=== PATIENT | female | born 1960 | race Caucasian/White ===

== ENCOUNTER 2016-11-11 10:38 | Emergency (ER) | payer SELFPAY ==
[~2016-11-11 10:38] MED LIST: Sodium Chloride 0.9% 1,000 ML BAG ONE
[2016-11-11 12:26] LABS: #Basophils 0.1 thou/uL (0.0-0.2); #Eosinphils 0.1 thou/uL (0.0-0.7); #Lymphocytes 0.9 thou/uL (1.20-3.40); #Monocytes 0.6 thou/uL (0.11-0.59); #Neutrophils 13.7 thou/uL (1.40-6.50); %Basophils 0.6 % (0.0-1.0); %Eosinophils 0.6 % (0.0-10.0); %Lymphocytes 6.1 % (21.0-51.0); %Monocytes 3.6 % (0.0-10.0); %Neutrophils 89.1 % (42.0-75.0); Hemoglobin 10.8 g/dL (12.0-16.0); Mean Corpuscular HGB CONC 31.7 g/dL (32.0-36.0); Mean Platelet Volume 5.7 fL (7.4-10.4); Platelet Count 416 thou/uL (130-400); RBC Distribution Width 13.4 % (11.5-14.5); Red Blood Cell (RBC) Count 3.36 mill/uL (4.20-5.40); White Blood Cell (WBC) Count 15.4 thou/uL (4.8-10.8)
[2016-11-11 12:28] LABS: ALT (SGPT) 82 U/L (0-55); AST (SGOT) 189 U/L (5-34); Albumin 3.9 g/dL (3.5-5.0); Alcohol Less than 10 mg/dL (Less than 10); Alkaline Phosphatase 111 U/L (40-150); Anion Gap 20 mmol/L (10-20); BUN (Urea Nitrogen) 15 mg/dL (9.8-20.1); Bilirubin, Total Less than 0.3 mg/dL (0.2-1.2); Calc. Creatinine Clearance 0 mL/min (70-130); Calcium 8.9 mg/dL (7.8-10.44); Carbon Dioxide 19 mmol/L (22-29); Chloride 105 mmol/L (98-107); Estimated GFR-MDRD 75; Globulin 3.3 g/dL (2.4-3.5); Glucose 108 mg/dL (70-105); Potassium 4.3 mmol/L (3.5-5.1); Protein, Total 7.2 g/dL (6.0-8.3); Sodium 140 mmol/L (136-145)
[2016-11-11 12:29] LABS: CKMB 6.4 ng/mL (0-6.6); Troponin I Less than 0.010 ng/mL (< 0.028)
[2016-11-11 12:33] LABS: Bilirubin Negative (Negative); Blood, Urine Small (Negative); Clarity Turbid (Clear); Glucose, Urine (Dipstick) Negative (Negative); Leukocyte Trace (Negative); Nitrite Positive (Negative); Protein, Urine (Dipstick) 30 mg/dL (Neg-Trace); Urobilinogen 0.2 mg/dL (0.2-1.0)
[2016-11-11 12:42] LABS: Bacteria/HPF 4+ HPF (None Seen); RBC/HPF 21-50 HPF (0-3); Squamous Epithelial 21-50 HPF (0-3); Transitional Epithelial 0-3 HPF (0-3); Yeast-All Forms 2+ HPF (None Seen)
[2016-11-11 12:43] LABS: Amphetamine Not Detected (NotDetected); Barbiturates Screen Not Detected (NotDetected); Benzodiazepine Screen Detected (NotDetected); Cocaine Metabolite Screen Not Detected (NotDetected); Medtox Control Line Valid? VALID (VALID); Methadone Not Detected (NotDetected); Methamphetamine Not Detected (NotDetected); Opiate Screen Detected (NotDetected); Oxycodone Screen Not Detected (NotDetected); Phencyclidine (PCP) Not Detected (NotDetected); THC/Cannabinoid Screen Detected (NotDetected); Tricyclic Screen Not Detected (NotDetected)
[2016-11-11] MEDS ORDERED: Naloxone HCl 0.4 mg/ml Vial ONE (12:56)
[2016-11-11] MEDS ORDERED: Fentanyl 100 MCG/2 ML VIAL ONE (13:35)
[2016-11-11 13:56] LABS: Acetaminophen Less than 3.0 mcg/mL (10.0-30.0); Salicylate Less than 5.0 mg/dL (15.0-30.0)
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
--- NOTE | 2016-11-11 14:39 | PICIS ---
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 (0.0-0.2). (12:27 LHOD) Cardiac Profile w/CKMB & TropI Collection DT: Anette Nov 11, 2016 12:02, CKMB 6.4 ng/mL, Range (0-6.6), Troponin I Less than 0.010 ng/mL, Range (< 0.028), Reference Range &a-1R&a+25V*p+0X*[id number]*c202B*c15G*c2P*p-0X&a-25V&a+1R Name: Cora Ponce : 1960 F56 MedRec: [id number] AcctNum: [id number] Prepared: Anette Nov 11, 2016 15:32 by Interface Page 10 of 13 pMD [facility] , 0.00 - 0.028 ng/mL Negative 0.029 - 0.29 ng/mL , Indeterminate Greater or Equal to 0.3 ng/mL Strongly suggests CO , . (12:30 LHOD) Alcohol Collection DT: Anette Nov 11, 2016 12:02, Alcohol Less than 10 mg/dL, Range (Less than 10), The pharmacological response to blood alcohol levels may vary from, individual to individual. Negative: Less than 10, mg/dL Toxic: 50 - 100 mg/dL , Depression of [employer]: Greater than 100 mg/dL , Fatalities reported: Greater than 400 mg/dL . (12:30 LHOD) Comprehensive Metabolic Panel Collection DT: Anette Nov 11, 2016 12:02, Sodium 140 mmol/L, Range (136-145), Potassium 4.3 mmol/L, Range (3.5-5.1), Chloride 105 mmol/L, Range (98-107), *Carbon Dioxide 19 - L mmol/L, Range (22-29), Anion Gap 20 mmol/L, Range (10-20), BUN (Urea Nitrogen) 15 mg/dL, Range (9.8-20.1), Creatinine 0.79 mg/dL, Range (0.6-1.1), Estimated GFR-MDRD 75 , Reference Range for Estimated GFR: Greater than 90, mL/min/1.73 m2 NOTE: The MDRD equation has not been validated for use, with the elderly (over 70 years of age), women, patients with, serious comorbid condition or persons with extremes of body size, muscle, mass, or nutritional status. , *Glucose 108 - H mg/dL, Range (70-105), Calcium 8.9 mg/dL, Range (7.8-10.44), Bilirubin, Total Less than 0.3 mg/dL, Range (0.2-1.2), Protein, Total 7.2 g/dL, Range (6.0-8.3), NOTE: Plasma values are generally 0.3 to 0.5 g/dL higher than serum values, due to the presence of fibrinogen. , Albumin 3.9 g/dL, Range (3.5-5.0), Globulin 3.3 g/dL, Range (2.4-3.5), Alb/Glob Ratio 1.2 g/dL, Range (1.2-2.2), Alkaline Phosphatase 111 U/L, Range (40-150), *AST (SGOT) 189 - H U/L, Range (5-34), *ALT (SGPT) 82 - H U/L, Range (0-55). (12:30 LHOD) Drug Screen, Urine Collection DT: Anette Nov 11, 2016 12:43, *THC/Cannabinoid Screen Detected - H , Range (NotDetected), Phencyclidine (PCP) Not Detected , Range (NotDetected), Cocaine Metabolite Screen Not Detected , Range (NotDetected), &a-1R&a+25V*p+0X*[id number]*c202B*c15G*c2P*p-0X&a-25V&a+1R Name: Cora Ponce : 1960 F56 MedRec: [id number] AcctNum: [id number] Prepared: Anette Nov 11, 2016 15:32 by Interface Page 11 of 13 pMD [facility] Methamphetamine Not Detected , Range (NotDetected), *Opiate Screen Detected - H , Range (NotDetected), Amphetamine Not Detected , Range (NotDetected), *Benzodiazepine Screen Detected - H , Range (NotDetected), Tricyclic Screen Not Detected , Range (NotDetected), Methadone Not Detected , Range (NotDetected), Barbiturates Screen Not Detected , Range (NotDetected), Oxycodone Screen Not Detected , Range (NotDetected), Propoxyphene Screen Not Detected , Range (NotDetected), Drug Screen Cutoff , Range (), [employer] Profile-V Panel for Qualitative Drugs of Abuse assays are for, presumptive screening testing only. The drug class and detection limits, are as follows: Drug Class Detection Limit Amphetamine , 500 ng/mL* Barbiturates 200 ng/mL , Benzodiazepines 150 ng/mL* Cocaine 150 ng/mL*, Methamphetamine 500 ng/mL* Methadone 200, ng/mL* Opiates 100 ng/mL* Oxycodone , 100 ng/mL PCP 25 ng/mL Propoxyphene , 300 ng/mL Tricyclic Antidepressants 300 ng/mL Cannabinoids (THC) , 50 ng/mL Tests which yield a presumptive positive result must be , tested using a more specific alternate chemical method in order to obtain, a confirmed analytical result. Additional confirmation and identification, may be ordered on a routine basis, if desired. Presumptive positive urines, are held for two weeks. . (12:50 LHOD) Urinalysis with Microscopic Collection DT: Lincoln Nov 11, 2016 12:33, Color Yellow , Range (Yellow), *Clarity Turbid - H , Range (Clear), Specific [place], Urine 1.020 , Range (1.005-1.030), pH, Urine 5.0 , Range (5.0-9.0), *Leukocyte Trace - H , Range (Negative), *Nitrite Positive - H , Range (Negative), *Protein, Urine (Dipstick) 30 - H mg/dL, Range (Neg-Trace), Glucose, Urine (Dipstick) Negative mg/dL, Range (Negative), *Ketone, Urine Trace - H mg/dL, Range (Negative), Urobilinogen 0.2 mg/dL, Range (0.2-1.0), Bilirubin Negative , Range (Negative), *Blood, Urine Small - H , Range (Negative), *RBC/HPF 21-50 - H HPF, Range (0-3), *WBC/HPF Greater Than 50-TNTC HPF, &a-1R&a+25V*p+0X*[id number]*c202B*c15G*c2P*p-0X&a-25V&a+1R Name: Cora Ponce : 1960 F56 MedRec: [id number] AcctNum: [id number] Prepared: [place] Nov 11, 2016 15:32 by Interface Page 12 of 13 pMD [facility] * - H , Range (0-3), *Squamous Epithelial 21-50 - H HPF, Range (0-3), Transitional Epithelial 0-3 HPF, Range (0-3), *Renal Epithelial 4-6 - H HPF, Range (0-3), *Bacteria/HPF 4+ - H HPF, Range (None Seen), *Yeast-All Forms 2+ - H HPF, Range (None Seen). (12:50 LHOD) Salicylate Collection DT: Lincoln Nov 11, 2016 13:56, *Salicylate Less than 5.0 - L mg/dL, Range (15.0-30.0). (13:57 LHOD) Acetaminophen Collection DT: Lincoln Nov 11, 2016 13:56, *Acetaminophen Less than 3.0 - L mcg/mL, Range (10.0-30.0), Therapeutic Range: 10.0 - 30.0 ug/mL Toxic Range: Possible, toxicity: 150 - 200 ug/mL Probable toxicity: Greater than 200, ug/mL *IMPORTANT TESTING INFORMATION* The half-life of NAC is 2, hours. The total NAC clearance is 5.6 hours for adults and 11 hours for, Newborns. Testing acetaminophen levels prior to a reasonable time frame, for clearance can cause falsely decreased acetaminophen levels. . (13:57 LHOD) [place]: AWAT=ESSIE To, Andrew LHOD=MD Danette, Lawanda DOHERTYI=ESSIE Birch, Slinda &a-1R&a+25V*p+0X*[id number]*c202B*c15G*c2P*p-0X&a-25V&a+1R Name: Cora Ponce : 1960 F56 MedRec: [id number] AcctNum: [id number] Prepared: Anette Nov 11, 2016 15:32 by Interface Page 13 of 13 pMD [facility]
--- NOTE | 2016-11-11 14:55 | CT ---
CT OF BRAIN PERFORMED WITHOUT CONTRAST ENHANCEMENT: HISTORY: Head injury. FINDINGS: The ventricular and cisternal system is within normal limits. There are no signs of intracerebral h emorrhage or extraaxial fluid collections. Left frontal scalp hematoma is present. The mastoid air cells and visualized sinuses are clear. IMPRESSION: No acute intracranial abnormalities. POS: [facility]
--- NOTE | 2016-11-11 14:58 | RAD ---
AP PELVIS: HISTORY: Trauma to pelvis. FINDINGS: The pelvic ring appears intact without evidence of fracture. SI joints are symmetric. No diastasis of the symphysis. IMPRESSION: Negative AP pelvis. POS: [facility]
--- NOTE | 2016-11-11 15:03 | CT ---
CT CERVICAL SPINE PERFORMED WITHOUT CONTRAST ENHANCEMENT HISTORY: Trauma with neck pain. COMPARISON: 05/01/2015 FINDINGS: The vertebral bodies are normal in height. Anterior cervical fusion is again noted at th e C5-C6 level. There are degenerative facet changes present. The facets do appear to be in normal alignment. There is some borderline left-sided foraminal narrowing at C5-C6. There is no CT eviden ce for fracture. IMPRESSION No CT evidence of fracture of the cervical spine. POS: [facility]
--- NOTE | 2016-11-11 15:18 | RAD ---
SINGLE VIEW CHEST HISTORY: Chest trauma with pain. COMPARISON: None. FINDINGS: A single view of the chest shows a normal sized cardiomediastinal silhouette. There is no evidence of consolidation, mass, or pleural effusion. Degenerative changes are seen in the spine . There appears to be a fracture of the proximal right humerus. IMPRESSION 1. No evidence of acute cardiopulmonary disease. 2. Proximal right humeral fracture. POS: [facility]
--- NOTE | 2016-11-11 15:21 | RAD ---
RIGHT SHOULDER THREE VIEWS HISTORY: Injury to shoulder. FINDINGS: There is a right humeral neck and greater tuberosity fracture. The humeral head is in n ormal position. IMPRESSION Right humeral neck and greater tuberosity fracture. POS: [facility]
== END 2016-11-11 13:48 | disposition short-term general hospital (02) ==
LOC: MADERS 10:38
DX: S09.90XA Unspecified injury of head, initial encounter (principal); S42.291A Other displaced fracture of upper end of right humerus, initial encounter for closed fracture; S42.251A Displaced fracture of greater tuberosity of right humerus, initial encounter for closed fracture; R74.8 Abnormal levels of other serum enzymes; J44.9 Chronic obstructive pulmonary disease, unspecified; F17.210 Nicotine dependence, cigarettes, uncomplicated; Z90.49 Acquired absence of other specified parts of digestive tract; Z90.89 Acquired absence of other organs; Z90.710 Acquired absence of both cervix and uterus; V49.9XXA Car occupant (driver) (passenger) injured in unspecified traffic accident, initial encounter
CPT/HCPCS: 36415; 70450; 71010; 72125; 72170; 80053; 80306; 80307; 81001; 82553; 84484; 85025; 87077; 87086; 87186; 93005; 94640; 96361; 96374; 96375; J2310; J3010; J7050; J7620

== ENCOUNTER 2017-04-28 17:48 | Emergency (ER) | payer SELFPAY, OTHER ==
[2017-04-28] MEDS ORDERED: Ibuprofen 400 MG TAB ONE (19:13)
--- NOTE | 2017-04-28 20:38 | RAD ---
THREE VIEWS RIGHT SHOULDER 04/28/2017 HISTORY: Right shoulder pain. COMPARISON: 11/11/2016 FINDINGS: Three views of the right shoulder demonstrate a healing proximal right humeral fracture. No acute r ight shoulder fracture is seen. IMPRESSION: Healing right humeral fracture. POS: [facility]
== END 2017-04-28 19:57 | disposition home or self-care (01) ==
LOC: MADERS 17:48
DX: K12.1 Other forms of stomatitis (principal); M16.11 Unilateral primary osteoarthritis, right hip; M19.011 Primary osteoarthritis, right shoulder; F41.9 Anxiety disorder, unspecified; J44.9 Chronic obstructive pulmonary disease, unspecified; D50.9 Iron deficiency anemia, unspecified; F17.210 Nicotine dependence, cigarettes, uncomplicated; Z86.73 Personal history of transient ischemic attack (TIA), and cerebral infarction without residual deficits

== ENCOUNTER 2017-07-14 19:39 | Emergency (ER) | payer OTHER, SELFPAY ==
[2017-07-14 20:38] LABS: Hemoglobin 10.6 g/dL (12.0-16.0); Mean Corpuscular HGB CONC 32.8 g/dL (32.0-36.0); Mean Corpuscular Hemoglobin 32.4 pg (27.0-31.0); Mean Corpuscular Volume 98.7 fl (81.0-99.0); Mean Platelet Volume 6.4 fL (7.4-10.4); Platelet Count 372 thou/uL (130-400); RBC Distribution Width 13.8 % (11.5-14.5); Red Blood Cell (RBC) Count 3.29 mill/uL (4.20-5.40); White Blood Cell (WBC) Count 12.2 thou/uL (4.8-10.8)
[2017-07-14 20:41] LABS: #Basophils 0.1 thou/uL (0.0-0.2); #Eosinphils 0.2 thou/uL (0.0-0.7); #Lymphocytes 1.8 thou/uL (1.20-3.40); #Monocytes 0.6 thou/uL (0.11-0.59); #Neutrophils 9.4 thou/uL (1.40-6.50); %Eosinophils 1.7 % (0.0-10.0); %Lymphocytes 14.5 % (21.0-51.0); %Monocytes 5.7 % (0.0-10.0); %Neutrophils 77.2 % (42.0-75.0); ALT (SGPT) 18 U/L (8-55); AST (SGOT) 21 U/L (5-34); Albumin 3.8 g/dL (3.5-5.0); Alkaline Phosphatase 101 U/L (40-150); Anion Gap 14 mmol/L (10-20); BUN (Urea Nitrogen) 11 mg/dL (9.8-20.1); Bilirubin, Total Less than 0.3 mg/dL (0.2-1.2); Calc. Creatinine Clearance 0 mL/min (70-130); Calcium 8.8 mg/dL (7.8-10.44); Carbon Dioxide 21 mmol/L (22-29); Chloride 107 mmol/L (98-107); Estimated GFR-MDRD 66; Globulin 3.8 g/dL (2.4-3.5); Glucose 103 mg/dL (70-105); Potassium 4.4 mmol/L (3.5-5.1); Protein, Total 7.6 g/dL (6.0-8.3); Sodium 138 mmol/L (136-145)
[2017-07-14 20:42] LABS: Eosinophils 4 % (0-10); Hypochromia SLIGHT = 6-15 cells (100X) (0-5/hpf); Lymphocytes 18 % (21-51); Monocytes 8 % (0-10); PLT Morphology Comment Appears Adequate
[2017-07-14 20:43] LABS: MDiff Complete? YES; Manual Diff?? YES; RBC Morphology ABNORMAL
--- NOTE | 2017-07-14 21:58 | RAD ---
SINGLE VIEW OF THE CHEST LEFT RIB SERIES: Comparison: None. History: Fall with left chest pain. FINDINGS: Single view of the chest and multiple views of the left ribs shows fracture of the posterolateral 8t h, 9th, and 10th ribs. No underlying pneumothorax are seen. The cardiomediastinal silhouette is normal in size. There is no evidence of consolidation, mass, or pleural effusions. Hardware is seen in the cervical spine. IMPRESSION: Left 8th through 10th rib fractures. POS: [facility]
== END 2017-07-14 21:27 | disposition home or self-care (01) ==
LOC: MADERS 19:39
DX: S22.42XA Multiple fractures of ribs, left side, initial encounter for closed fracture (principal); J06.9 Acute upper respiratory infection, unspecified; F43.9 Reaction to severe stress, unspecified; J44.9 Chronic obstructive pulmonary disease, unspecified; D50.9 Iron deficiency anemia, unspecified; F17.210 Nicotine dependence, cigarettes, uncomplicated; Z86.73 Personal history of transient ischemic attack (TIA), and cerebral infarction without residual deficits; Z79.899 Other long term (current) drug therapy; W19.XXXA Unspecified fall, initial encounter
CPT/HCPCS: 36415; 80053; 85025

== ENCOUNTER 2017-12-27 21:43 | Emergency (ER) | payer OTHER, SELFPAY ==
--- NOTE | 2017-12-27 22:38 | RAD ---
SOFT TISSUE NECK RADIOGRAPH SERIES TWO VIEWS 12/27/17 INDICATION: Evaluation for foreign body. FINDINGS: There is no obvious radiopaque foreign body seen overlying the imaged oropharyngeal airway. Epiglotti s is unremarkable. Postsurgical changes at the low cervical spine present. There is partially imaged radiopaque density overlying the oral cavity, not further localized on the lateral view. IMPRESSION: No radiopaque foreign body is seen at the level of the oropharynx or hypopharyngeal airway. Partially imaged hyperdensity projects over the oral cavity on the lateral projection, not further lo calized. POS: [facility]
[2017-12-27] MEDS ORDERED: Lorazepam 2 MG/ML VIAL ONE (23:08)
[2017-12-27] MEDS ORDERED: Ondansetron HCl/PF 4 MG/2 ML Vial ONE (23:09)
[2017-12-27] MEDS ORDERED: MORPHINE 10 MG/ML SYRINGE ONE (23:09)
== END 2017-12-28 00:15 | disposition short-term general hospital (02) ==
LOC: MADERS 21:43
DX: T18.198A Other foreign object in esophagus causing other injury, initial encounter (principal); J44.9 Chronic obstructive pulmonary disease, unspecified; G89.29 Other chronic pain; M54.30 Sciatica, unspecified side; F41.9 Anxiety disorder, unspecified; F17.210 Nicotine dependence, cigarettes, uncomplicated; D50.9 Iron deficiency anemia, unspecified; Z79.899 Other long term (current) drug therapy
CPT/HCPCS: 70360; 96374; 96375; J2060; J2270; J2405

== ENCOUNTER 2019-12-14 20:21 | Emergency (ER) | payer SELFPAY ==
[~2019-12-14 20:21] MED LIST changes: +Sodium Chloride 0.9% 50 ML BAG ONE
[2019-12-14] MEDS ORDERED: Ondansetron PF 4 MG/2 ML Vial ONE ×2 (21:09→21:15)
[2019-12-14 21:24] LABS: #Basophils 0.1 thou/uL (0.0-0.2); #Lymphocytes 1.6 thou/uL (1.20-3.40); #Monocytes 0.5 thou/uL (0.11-0.59); #Neutrophils 4.4 thou/uL (1.40-6.50); %Basophils 1.2 % (0.0-1.0); %Eosinophils 0.3 % (0.0-10.0); %Lymphocytes 23.9 % (21.0-51.0); %Monocytes 7.8 % (0.0-10.0); %Neutrophils 66.9 % (42.0-75.0); Hemoglobin 11.9 g/dL (12.0-16.0); Mean Corpuscular HGB CONC 31.5 g/dL (32.0-36.0); Mean Corpuscular Hemoglobin 31.5 pg (27.0-31.0); Mean Platelet Volume 6.2 fL (7.4-10.4); Platelet Count 642 thou/uL (130-400); RBC Distribution Width 14.5 % (11.5-14.5); Red Blood Cell (RBC) Count 3.77 mill/uL (4.20-5.40); White Blood Cell (WBC) Count 6.6 thou/uL (4.8-10.8)
[2019-12-14] MEDS ORDERED: Morphine 4 MG/ML VIAL ONE (21:51)
[2019-12-14 21:58] LABS: ALT (SGPT) 16 U/L (8-55); AST (SGOT) 20 U/L (5-34); Albumin 3.8 g/dL (3.4-4.8); Alkaline Phosphatase 133 U/L (40-110); Anion Gap 18 mmol/L (10-20); BUN (Urea Nitrogen) 27 mg/dL (9.8-20.1); Bilirubin, Total 0.2 mg/dL (0.2-1.2); Calc. Creatinine Clearance 0 mL/min (70-130); Calcium 8.9 mg/dL (7.8-10.44); Carbon Dioxide 18 mmol/L (23-31); Chloride 104 mmol/L (98-107); Estimated GFR-MDRD 43; Globulin 4.5 g/dL (2.4-3.5); Glucose 117 mg/dL (80-115); Lipase 9 U/L (8-78); Potassium 3.5 mmol/L (3.5-5.1); Protein, Total 8.3 g/dL (6.0-8.3); Sodium 136 mmol/L (136-145)
[2019-12-14] MEDS ORDERED: Metoclopramide HCl 10 MG/2 ML VIAL ONE (22:11)
--- NOTE | 2019-12-14 22:22 | CT ---
CT Abdomen Pelvis WO Con History: Abdominal pain. Vomiting. Comparison: None. Findings: Few tree-in-bud opacities within the right middle lobe as well as anterior segment left low er lobe. Prior cholecystectomy. Mild diverticular disease of the sigmoid colon without active current inflammation. Mild wall thicken ing of the sigmoid colon without definite mass appreciated. Distal one half appendiceal size measures approximate 6-7 mm, increased in size from the 2017 exam. The aortoiliac contour is nonaneurysmal. Multiple calcified splenic granulomas. Pancreas is unremarka ble. Noncontrast evaluation of the liver, pancreas, adrenal glands are unremarkable. No nephroureterolithi asis or hydroureteronephrosis. No secondary evidence of a recently passed stone. Old fracture of L1 vertebral body with minimal retropulsion. Subcortical cysts of the T12 vertebral body. Impression: 1. Appendiceal tip size upper limits of normal. Recommend correlation with right lower quadrant tende rness although there is no periappendiceal inflammation and acute appendicitis is felt unlikely. A follow-up CT of the abdomen and pelvis with contrast in 6 months would be recommended if patient does not have symptomatology of early acute appendicitis given the interval size increase from 2017 to evaluate for underlying appendiceal malignant process. 2. Mild diverticular disease sigmoid colon without active current inflammation. 3. No nephroureterolithiasis or hydroureteronephrosis. No secondary evidence of a recently passed sto ne. 4. Few tree-in-bud opacities within the right middle lobe, left lower lobe and right lower lobe can b e seen with aspiration pneumonia.
[2019-12-14] MEDS ORDERED: Promethazine HCl 25 MG/ML VIAL ONE (23:04)
[2019-12-14] MEDS ORDERED: Dexamethasone 10 MG/ML VIAL ONE (23:06)
[2019-12-15 00:17] LABS: Bilirubin Negative (Negative); Blood, Urine Negative (Negative); Clarity Clear (Clear); Glucose, Urine (Dipstick) Negative (Negative); Leukocyte Negative (Negative); Nitrite Negative (Negative); Protein, Urine (Dipstick) 30 mg/dL (Neg-Trace); Urobilinogen 0.2 mg/dL (Less than 2)
[2019-12-15 00:26] LABS: Bacteria/HPF Rare-Few HPF (None Seen); Mucous/LPF Rare LPF (<2+); RBC/HPF None Seen HPF (0-3); Squamous Epithelial 0-3 HPF (0-3); WBC/HPF 0-3 HPF (0-3)
== END 2019-12-15 00:29 | disposition home or self-care (01) ==
LOC: MADERS 20:21
DX: K52.9 Noninfective gastroenteritis and colitis, unspecified (principal); F31.9 Bipolar disorder, unspecified; F41.9 Anxiety disorder, unspecified; J44.9 Chronic obstructive pulmonary disease, unspecified; F17.210 Nicotine dependence, cigarettes, uncomplicated; D50.9 Iron deficiency anemia, unspecified; Z86.73 Personal history of transient ischemic attack (TIA), and cerebral infarction without residual deficits; Z79.899 Other long term (current) drug therapy
CPT/HCPCS: 74176; 80053; 81003; 81015; 83690; 85025; 96361; 96365; 96375; J1100; J2270; J2405; J2550; J2765; J7050

== ENCOUNTER 2020-06-26 00:42 | Emergency (ER) | payer SELFPAY ==
[2020-06-26] MEDS ORDERED: Colchicine 0.6 MG TAB ONE (01:06)
[2020-06-26] MEDS ORDERED: Ketorolac Tromethamine 30 MG/ML VIAL ONE (01:06)
[2020-06-26] MEDS ORDERED: Ondansetron ODT 4 MG TAB ONE (01:06)
[2020-06-26] MEDS ORDERED: HYDROcodone/Acetaminophen 10/325 mg Tablet ONE (01:48)
== END 2020-06-26 01:52 | disposition home or self-care (01) ==
LOC: MADERS 00:42
DX: M10.9 Gout, unspecified (principal); J44.9 Chronic obstructive pulmonary disease, unspecified; F31.9 Bipolar disorder, unspecified; F41.9 Anxiety disorder, unspecified; F17.210 Nicotine dependence, cigarettes, uncomplicated; D50.9 Iron deficiency anemia, unspecified; Z86.73 Personal history of transient ischemic attack (TIA), and cerebral infarction without residual deficits
CPT/HCPCS: 96372; 99283; J1885; Q0162

== ENCOUNTER 2021-07-26 21:53 | Emergency (ER) | payer SELFPAY ==
[~2021-07-26 21:53] MED LIST changes: +Iopamidol 370 76% 125 ML VIAL FS ONE; -Sodium Chloride 0.9% 1,000 ML BAG ONE; +Sodium Chloride 0.9% 100 ML BAG ONE; -Sodium Chloride 0.9% 50 ML BAG ONE
[2021-07-26] MEDS ORDERED: Morphine 4 MG/ML VIAL ONE (22:59)
[2021-07-26 23:22] LABS: #Lymphocytes 1.7 thou/uL (1.20-3.40); #Monocytes 1.4 thou/uL (0.11-0.59); #Neutrophils 16.2 thou/uL (1.40-6.50); %Basophils 0.2 % (0.0-1.0); %Eosinophils 0.1 % (0.0-10.0); %Lymphocytes 8.8 % (21.0-51.0); %Neutrophils 83.9 % (42.0-75.0); Hemoglobin 10.8 g/dL (12.0-16.0); Mean Corpuscular HGB CONC 31.8 g/dL (32.0-36.0); Mean Corpuscular Hemoglobin 31.4 pg (27.0-31.0); Mean Corpuscular Volume 98.7 fL (78.0-98.0); Mean Platelet Volume 5.1 fL (7.4-10.4); Platelet Count 486 thou/uL (130-400); RBC Distribution Width 14.2 % (11.5-14.5); Red Blood Cell (RBC) Count 3.45 mill/uL (4.20-5.40); White Blood Cell (WBC) Count 19.3 thou/uL (4.8-10.8)
[2021-07-26 23:39] LABS: ALT (SGPT) 11 U/L (8-55); AST (SGOT) 16 U/L (5-34); Albumin 3.4 g/dL (3.4-4.8); Alkaline Phosphatase 116 U/L (40-110); Anion Gap 13 mmol/L (10-20); BUN (Urea Nitrogen) 20 mg/dL (9.8-20.1); Bilirubin, Total 0.3 mg/dL (0.2-1.2); Calc. Creatinine Clearance 0 mL/min (70-130); Calcium 8.7 mg/dL (7.8-10.44); Carbon Dioxide 21 mmol/L (23-31); Chloride 99 mmol/L (98-107); Globulin 4.5 g/dL (2.4-3.5); Glucose 110 mg/dL (80-115); Potassium 4.3 mmol/L (3.5-5.1); Protein, Total 7.9 g/dL (5.8-8.1); Sodium 129 mmol/L (136-145)
[2021-07-27 00:22] LABS: Bilirubin Negative (Negative); Blood, Urine Negative (Negative); Clarity Clear (Clear); Glucose, Urine (Dipstick) Negative (Negative); Ketone, Urine Negative (Negative); Leukocyte Negative (Negative); Nitrite Negative (Negative); Protein, Urine (Dipstick) Trace mg/dL (Neg-Trace); Urobilinogen 0.2 mg/dL (Less than 2)
[2021-07-27 00:44] LABS: Amphetamine Not Detected (NotDetected); Benzodiazepine Screen Not Detected (NotDetected); Cocaine Metabolite Screen Not Detected (NotDetected); Methadone Not Detected (NotDetected); Methamphetamine Not Detected (NotDetected); Opiate Screen Detected (NotDetected); Phencyclidine (PCP) Not Detected (NotDetected); THC/Cannabinoid Screen Not Detected (NotDetected); Tricyclic Screen Detected (NotDetected)
[2021-07-27 00:45] LABS: Barbiturates Screen Not Detected (NotDetected); Medtox Control Line Valid? VALID (VALID); Oxycodone Screen Not Detected (NotDetected)
[2021-07-27] MEDS ORDERED: Morphine 2 MG/ML VIAL ONE (01:14)
[2021-07-27] MEDS ORDERED: Sodium Chloride 0.9% 100 ML ONE (01:38)
[2021-07-27] MEDS ORDERED: Azithromycin 500 MG VIAL ONE (01:38)
[2021-07-27] MEDS ORDERED: cefTRIAXone\\ROCEPHIN 2 GM VIAL ONE (01:39)
[2021-07-27] MEDS ORDERED: Sodium Chloride 0.9% 250 ML 250 ML ONE (01:39)
[2021-07-27] MEDS ORDERED: Azithromycin 250 MG TAB ONE (01:50)
[2021-07-27] MEDS ORDERED: Amoxicillin/Potassium Clav 875 MG TAB ONE (01:50)
== END 2021-07-27 02:10 | disposition left against medical advice (07) ==
LOC: MADERS 21:53
DX: R55 Syncope and collapse (principal); J44.0 Chronic obstructive pulmonary disease with (acute) lower respiratory infection; S82.832A Other fracture of upper and lower end of left fibula, initial encounter for closed fracture; J18.9 Pneumonia, unspecified organism; M10.9 Gout, unspecified; D50.9 Iron deficiency anemia, unspecified; F17.210 Nicotine dependence, cigarettes, uncomplicated; Z86.73 Personal history of transient ischemic attack (TIA), and cerebral infarction without residual deficits; X58.XXXA Exposure to other specified factors, initial encounter
CPT/HCPCS: 36415; 51701; 70450; 71045; 71275; 80053; 80306; 81003; 83605; 83880; 84484; 85025; 96374; 96376; J0456; J0696; J2270; J3490; J7050; Q9967

== ENCOUNTER 2023-06-10 04:38 | Emergency (ER) | payer OTHER, SELFPAY ==
[2023-06-10] MEDS ORDERED: Ipratropium/Albuterol 3 ML NEB ONE (05:31)
[2023-06-10] MEDS ORDERED: Ondansetron PF 4 MG/2 ML Vial ONE ×2 (05:31→07:03)
[2023-06-10] MEDS ORDERED: Morphine 4 MG/ML VIAL ONE (05:31)
[2023-06-10] MEDS ORDERED: Sodium Chloride 0.9% 1,000 ML ONE (05:31)
[2023-06-10 05:48] LABS: #Basophils 0.1 thou/uL (0.0-0.2); #Monocytes 0.6 thou/uL (0.11-0.59); #Neutrophils 4.9 thou/uL (1.40-6.50); %Basophils 1.2 % (0.0-1.0); %Eosinophils 0.2 % (0.0-10.0); %Lymphocytes 14.8 % (21.0-51.0); %Monocytes 9.5 % (0.0-10.0); %Neutrophils 74.3 % (42.0-75.0); Anisocytosis SLIGHT = 6-15 cells (100X) (0-5/hpf); Base Excess-Venous 0.8 mmol/L (-2.0 to 3.0); Bicarbonate (HCO3v) 25.6 mmol/L (22.0-28.0); CO2 Tension (PvCO2) 40.8 mmHg (42.0-51.0); Calcium, Ionized 1.09 mmol/L (1.15-1.33); Chloride 102 mmol/L (98-107); Hemoglobin 11.9 g/dL (12.0-16.0); Hemoglobin - Calc 13.7 g/dL (12.0-16.0); MDiff Complete? YES; Macrocytosis SLIGHT = 6-15 cells (100X) (0-5/hpf); Mean Corpuscular HGB CONC 32.4 g/dL (32.0-36.0); Mean Corpuscular Hemoglobin 34.3 pg (27.0-31.0); Mean Corpuscular Volume 105.9 fl (78.0-98.0); Mean Platelet Volume 6.7 fL (7.4-10.4); Platelet Adequacy Comment Appears Increased; Platelet Count 543 10x3/uL (130-400); Potassium 3.8 mmol/L (3.5-5.1); RBC Distribution Width 15.2 % (11.5-14.5); Red Blood Cell (RBC) Count 3.46 mill/uL (4.20-5.40); Sodium 137 mmol/L (138-145); T. Carbon Dioxide 26.9 mmol/L (22.0-28.0); White Blood Cell (WBC) Count 6.5 10x3/uL (4.8-10.8); vO2 Saturation-calc 91.6 % (60.0-85.0)
[2023-06-10 05:52] LABS: ALT (SGPT) 18 U/L (8-55); AST (SGOT) 22 U/L (5-34); Albumin 3.6 g/dL (3.4-4.8); Alkaline Phosphatase 150 U/L (40-110); Anion Gap 22 mmol/L (10-20); BUN (Urea Nitrogen) 13 mg/dL (9.8-20.1); Bilirubin, Total 0.3 mg/dL (0.2-1.2); Calc. Creatinine Clearance 0 mL/min (70-130); Calcium 9.1 mg/dL (7.8-10.44); Carbon Dioxide 22 mmol/L (23-31); Chloride 97 mmol/L (98-107); Estimated GFR 96; Globulin 4.2 g/dL (2.4-3.5); Glucose 76 mg/dL (80-115); Protein, Total 7.8 g/dL (5.8-8.1); Sodium 137 mmol/L (136-145)
[2023-06-10] MEDS ORDERED: HYDROcodone/Acetaminophen 10/325 mg Tablet ONE (06:15)
[2023-06-10] MEDS ORDERED: Ketorolac Tromethamine 30 MG/ML VIAL ONE (06:15)
== END 2023-06-10 07:28 | disposition home or self-care (01) ==
LOC: MADERS 04:38
DX: G89.3 Neoplasm related pain (acute) (chronic) (principal); C34.90 Malignant neoplasm of unspecified part of unspecified bronchus or lung; F17.210 Nicotine dependence, cigarettes, uncomplicated
CPT/HCPCS: 80053; 82330; 82803; 85025; 94640; 94760; 96361; 96374; 96375; 96376; J1885; J2270; J2405; J7050; J7620

== ENCOUNTER 2023-06-11 15:45 | Emergency (ER) | payer OTHER ==
[2023-06-11] MEDS ORDERED: Ketorolac Tromethamine 30 MG/ML VIAL ONE (16:14)
[2023-06-11] MEDS ORDERED: Morphine 4 MG/ML VIAL ONE (16:14)
[2023-06-11] MEDS ORDERED: Sodium Chloride 0.9% 1,000 ML ONE (16:32)
== END 2023-06-11 17:52 | disposition home or self-care (01) ==
LOC: MADERS 15:45
DX: C34.90 Malignant neoplasm of unspecified part of unspecified bronchus or lung (principal); J44.9 Chronic obstructive pulmonary disease, unspecified; F17.210 Nicotine dependence, cigarettes, uncomplicated
CPT/HCPCS: 96374; 96375; J1885; J2270; J7050

== ENCOUNTER 2023-09-30 20:10 | Emergency (ER) | payer OTHER ==
[~2023-09-30 20:10] MED LIST changes: -Iopamidol 370 76% 125 ML VIAL FS ONE
[2023-09-30] MEDS ORDERED: Ipratropium/Albuterol 3 ML NEB ONE (21:04)
[2023-09-30] MEDS ORDERED: Ondansetron PF 4 MG/2 ML Vial ONE (21:04)
[2023-09-30] MEDS ORDERED: HYDROmorphone 0.5 MG/0.5 ML SYRINGE ONE ×2 (21:05→22:18)
[2023-09-30] MEDS ORDERED: Doxycycline 100 MG CAP ONE (21:05)
[2023-09-30] MEDS ORDERED: cefTRIAXone (ROCEPHIN) 2 GM VIAL ONE (21:05)
[2023-09-30] MEDS ORDERED: methylPREDNISolone Sod Succ/PF 125 MG/2 ML VIAL ONE (21:06)
[2023-09-30] MEDS ORDERED: Gabapentin 100 MG CAP ONE ×2 (21:07→22:18)
[2023-09-30] MEDS ORDERED: Lidocaine 4% Patch ONE (23:02)
[2023-10-01] MEDS ORDERED: Ketorolac Tromethamine 30 MG/ML VIAL ONE (00:41)
[2023-10-01] MEDS ORDERED: Acetaminophen 325 MG TAB ONE (00:41)
[2023-10-01] MEDS ORDERED: Morphine 4 MG/ML VIAL ONE (00:41)
== END 2023-10-01 02:22 | disposition home or self-care (01) ==
LOC: MADERS 20:10
DX: G89.3 Neoplasm related pain (acute) (chronic) (principal); J44.1 Chronic obstructive pulmonary disease with (acute) exacerbation; R09.02 Hypoxemia; C34.90 Malignant neoplasm of unspecified part of unspecified bronchus or lung; F17.210 Nicotine dependence, cigarettes, uncomplicated
CPT/HCPCS: 96365; 96375; 96376; J0696; J1170; J1885; J2270; J2405; J2930; J3490; J7620

== ENCOUNTER 2023-11-07 09:04 | Emergency (ER) | payer OTHER ==
[2023-11-07] MEDS ORDERED: Sodium Chloride 0.9% 1,000 ML ONE (09:50)
[2023-11-07] MEDS ORDERED: Morphine 4 MG/ML VIAL ONE (09:50)
[2023-11-07 10:15] LABS: Prothrombin Time 13.7 sec (12.0-14.7)
[2023-11-07 10:16] LABS: #Lymphocytes 0.4 thou/uL (1.20-3.40); #Monocytes 0.4 thou/uL (0.11-0.59); #Neutrophils 7.5 thou/uL (1.40-6.50); %Basophils 0.4 % (0.0-1.0); %Eosinophils 0.1 % (0.0-10.0); %Lymphocytes 4.5 % (21.0-51.0); %Monocytes 4.6 % (0.0-10.0); %Neutrophils 90.5 % (42.0-75.0); Hematocrit 34.9 % (36.0-47.0); Hemoglobin 10.7 g/dL (12.0-16.0); Mean Corpuscular HGB CONC 30.7 g/dL (32.0-36.0); Mean Corpuscular Hemoglobin 32.3 pg (27.0-31.0); Mean Corpuscular Volume 105.3 fl (78.0-98.0); Mean Platelet Volume 6.6 fL (7.4-10.4); PTT 33.8 sec (22.9-36.1); Platelet Count 515 10x3/uL (130-400); RBC Distribution Width 14.5 % (11.5-14.5); Red Blood Cell (RBC) Count 3.31 mill/uL (4.20-5.40); White Blood Cell (WBC) Count 8.3 10x3/uL (4.8-10.8)
[2023-11-07] MEDS ORDERED: Ondansetron PF 4 MG/2 ML Vial ONE (10:20)
[2023-11-07 10:24] LABS: ALT (SGPT) 13 U/L (8-55); AST (SGOT) 16 U/L (5-34); Albumin 3.5 g/dL (3.4-4.8); Alkaline Phosphatase 89 U/L (40-110); Anion Gap 18 mmol/L (10-20); BUN (Urea Nitrogen) 23 mg/dL (9.8-20.1); Bilirubin, Total 0.3 mg/dL (0.2-1.2); Calc. Creatinine Clearance 0 mL/min (70-130); Calcium 8.7 mg/dL (7.8-10.44); Carbon Dioxide 18 mmol/L (23-31); Chloride 104 mmol/L (98-107); Estimated GFR 91; Globulin 4.1 g/dL (2.4-3.5); Glucose 94 mg/dL (80-115); Potassium 3.7 mmol/L (3.5-5.1); Protein, Total 7.6 g/dL (5.8-8.1); Sodium 136 mmol/L (136-145)
[2023-11-07 10:26] LABS: Troponin I 0.014 ng/mL (< 0.028)
[2023-11-07 10:28] LABS: Base Excess-Venous -3.8 mmol/L (-2.0 to 3.0); Bicarbonate (HCO3v) 20.2 mmol/L (22.0-28.0); CO2 Tension (PvCO2) 32.7 mmHg (42.0-51.0); vO2 Saturation-calc 99.3 % (60.0-85.0)
[2023-11-07 10:29] LABS: Calcium, Ionized 1.17 mmol/L (1.15-1.33); Chloride 106 mmol/L (98-107); Hemoglobin - Calc 12.9 g/dL (12.0-16.0); Potassium 3.6 mmol/L (3.5-5.1); Sodium 136 mmol/L (138-145); T. Carbon Dioxide 21.2 mmol/L (22.0-28.0)
[2023-11-07] MEDS ORDERED: Morphine 2 MG/ML VIAL ONE (11:45)
== END 2023-11-07 11:58 | disposition home or self-care (01) ==
LOC: MADERS 09:04
DX: C34.92 Malignant neoplasm of unspecified part of left bronchus or lung (principal); R07.89 Other chest pain; R00.0 Tachycardia, unspecified; F17.210 Nicotine dependence, cigarettes, uncomplicated
CPT/HCPCS: 36415; 71275; 80053; 82330; 82803; 84484; 85025; 85610; 85730; 93005; 96361; 96374; 96375; 96376; J2270; J2272; J2405; J7050

== ENCOUNTER 2023-11-09 09:18 | Emergency (ER) | payer OTHER ==
[2023-11-09] MEDS ORDERED: methylPREDNISolone Sod Succ/PF 125 MG/2 ML VIAL ONE (09:52)
[2023-11-09 10:16] LABS: SARS-CoV-2 NAA Rapid Test Not Detected (NotDetected)
== END 2023-11-09 10:47 | disposition home or self-care (01) ==
LOC: MADERS 09:18
DX: M79.10 Myalgia, unspecified site (principal); J44.9 Chronic obstructive pulmonary disease, unspecified; C80.1 Malignant (primary) neoplasm, unspecified; F17.210 Nicotine dependence, cigarettes, uncomplicated; Z86.73 Personal history of transient ischemic attack (TIA), and cerebral infarction without residual deficits
CPT/HCPCS: 71045; 87804; 93005; 96372; J2930; U0002

== ENCOUNTER 2023-11-13 05:34 | Emergency (ER) | payer OTHER ==
[2023-11-13 06:34] LABS: Hematocrit 35.1 % (36.0-47.0); Hemoglobin 10.8 g/dL (12.0-16.0)
[2023-11-13] MEDS ORDERED: HYDROcodone/Acetaminophen 5/325 mg Tablet ONE (06:51)
== END 2023-11-13 09:20 | disposition home or self-care (01) ==
LOC: MADERS 05:34
DX: S42.212A Unspecified displaced fracture of surgical neck of left humerus, initial encounter for closed fracture (principal); J44.9 Chronic obstructive pulmonary disease, unspecified; F17.210 Nicotine dependence, cigarettes, uncomplicated; Z79.899 Other long term (current) drug therapy; W19.XXXA Unspecified fall, initial encounter
CPT/HCPCS: 36415; 70450; 72125; 85014; 85018; 96360

== ENCOUNTER 2023-11-15 12:26 | Emergency (ER) | payer OTHER ==
[2023-11-15] MEDS ORDERED: Ipratropium/Albuterol 3 ML NEB ONE (13:17)
[2023-11-15] MEDS ORDERED: methylPREDNISolone Sod Succ/PF 125 MG/2 ML VIAL ONE (13:23)
[2023-11-15] MEDS ORDERED: HYDROcodone/Acetaminophen 5/325 mg Tablet ONE (14:02)
[2023-11-15 15:20] LABS: #Lymphocytes 0.4 thou/uL (1.20-3.40); #Monocytes 0.3 thou/uL (0.11-0.59); #Neutrophils 7.2 thou/uL (1.40-6.50); %Basophils 0.3 % (0.0-1.0); %Eosinophils 0.1 % (0.0-10.0); %Lymphocytes 4.9 % (21.0-51.0); %Monocytes 3.6 % (0.0-10.0); %Neutrophils 91.2 % (42.0-75.0); Hematocrit 29.1 % (36.0-47.0); Mean Corpuscular HGB CONC 30.8 g/dL (32.0-36.0); Mean Corpuscular Hemoglobin 32.2 pg (27.0-31.0); Mean Corpuscular Volume 104.4 fl (78.0-98.0); Mean Platelet Volume 7.4 fL (7.4-10.4); Platelet Count 268 10x3/uL (130-400); Red Blood Cell (RBC) Count 2.79 mill/uL (4.20-5.40); White Blood Cell (WBC) Count 7.9 10x3/uL (4.8-10.8)
[2023-11-15 15:37] LABS: Anion Gap 14 mmol/L (10-20); BUN (Urea Nitrogen) 9 mg/dL (9.8-20.1); Calc. Creatinine Clearance 0 mL/min (70-130); Calcium 7.7 mg/dL (7.8-10.44); Carbon Dioxide 29 mmol/L (23-31); Chloride 105 mmol/L (98-107); Estimated GFR 101; Glucose 103 mg/dL (80-115); Potassium 2.9 mmol/L (3.5-5.1); Sodium 145 mmol/L (136-145)
[2023-11-15] MEDS ORDERED: Potassium Chloride 20 MEQ TAB ONE (16:11)
[2023-11-15] MEDS ORDERED: Calcium Carbonate 500 MG ChewTAB ONE (16:12)
[2023-11-15] MEDS ORDERED: Albuterol 2.5 MG (3 mL) NEB ONE (16:34)
[2023-11-15] MEDS ORDERED: Magnesium 2 GM/50 ML BAG (IN WATER) ONE (16:34)
== END 2023-11-15 18:01 | disposition left against medical advice (07) ==
LOC: MADERS 12:26
DX: S42.202A Unspecified fracture of upper end of left humerus, initial encounter for closed fracture (principal); J44.1 Chronic obstructive pulmonary disease with (acute) exacerbation; R00.0 Tachycardia, unspecified; F17.210 Nicotine dependence, cigarettes, uncomplicated; X58.XXXA Exposure to other specified factors, initial encounter
CPT/HCPCS: 71045; 80048; 85025; 94640; 94760; 96365; 96375; J2930; J3475; J7611; J7620

== ENCOUNTER 2023-11-17 02:50 | Emergency (ER) | payer OTHER ==
[2023-11-17] MEDS ORDERED: Ondansetron ODT 4 MG TAB ONE (03:16)
[2023-11-17] MEDS ORDERED: Ketorolac Tromethamine 10 MG TAB ONE (03:16)
[2023-11-17 03:26] LABS: #Lymphocytes 0.9 thou/uL (1.20-3.40); #Monocytes 0.6 thou/uL (0.11-0.59); #Neutrophils 9.8 thou/uL (1.40-6.50); %Basophils 0.4 % (0.0-1.0); %Eosinophils 0.2 % (0.0-10.0); %Lymphocytes 7.8 % (21.0-51.0); %Monocytes 5.4 % (0.0-10.0); %Neutrophils 86.2 % (42.0-75.0); Hematocrit 27.4 % (36.0-47.0); Hemoglobin 8.8 g/dL (12.0-16.0); Mean Corpuscular HGB CONC 32.1 g/dL (32.0-36.0); Mean Corpuscular Hemoglobin 32.4 pg (27.0-31.0); Mean Corpuscular Volume 100.9 fl (78.0-98.0); Mean Platelet Volume 6.8 fL (7.4-10.4); Platelet Count 344 10x3/uL (130-400); RBC Distribution Width 14.6 % (11.5-14.5); Red Blood Cell (RBC) Count 2.72 mill/uL (4.20-5.40); White Blood Cell (WBC) Count 11.4 10x3/uL (4.8-10.8)
[2023-11-17 03:40] LABS: Anion Gap 14 mmol/L (10-20); BUN (Urea Nitrogen) 7 mg/dL (9.8-20.1); Calc. Creatinine Clearance 0 mL/min (70-130); Carbon Dioxide 30 mmol/L (23-31); Chloride 91 mmol/L (98-107); Estimated GFR 102; Glucose 88 mg/dL (80-115); Sodium 133 mmol/L (136-145)
[2023-11-17 03:42] LABS: Critical Call Chemistry NUR.MNK @ 0342; Potassium 2.4 mmol/L (3.5-5.1)
[2023-11-17] MEDS ORDERED: Potassium Chloride 20 MEQ TAB ONE (03:45)
[2023-11-17 03:46] LABS: Troponin I Less than 0.010 ng/mL (< 0.028)
== END 2023-11-17 04:40 | disposition home or self-care (01) ==
LOC: MADERS 02:50
DX: J44.9 Chronic obstructive pulmonary disease, unspecified (principal); E87.6 Hypokalemia; S40.012A Contusion of left shoulder, initial encounter; X58.XXXA Exposure to other specified factors, initial encounter
CPT/HCPCS: 36415; 71045; 80048; 83880; 84484; 85025; 93005; Q0162